=== PATIENT | male | born 1980 | race Caucasian/White ===

== ENCOUNTER 2017-10-08 14:47 | Emergency (ER) | payer OTHER ==
[~2017-10-08] VITALS: Ht 175.3 cm; Wt 99.4 kg
[~2017-10-08 14:47] MED LIST: AUGMENTIN875 MG PO; NORCO 5/3251 TABLET PO; PREDNISONE20 MG PO; ROBITUSSIN AC,T10 ML PO; VENTOLIN HFA18 GM IH; VICODIN 5-3001 EACH PO
[2017-10-08] MEDS ORDERED: DOXYCYCLINE MO100 MG PO (16:21)
[2017-10-08 16:38] VITALS: BP 132/60
== END 2017-10-08 16:39 | disposition home or self-care (01) ==
LOC: EME 14:47
DX: L03.115 Cellulitis of right lower limb (principal); Z88.0 Allergy status to penicillin
CPT/HCPCS: 99281; 99284